=== PATIENT | female | born 1955 | race Caucasian/White ===

== ENCOUNTER 2019-03-12 12:18 | Day surgery (SDC) | payer SELFPAY, OTHER ==
[2019-03-07 17:11] LABS: Hematocrit 40.3 % (37-47); Hemoglobin 13.6 g/dL (12.0-15.0); Mean Corp Hgb Conc 33.7 g/dL (32-36); Mean Corpuscular Hgb 31.5 pg (27.0-32.0); Mean Corpuscular Volume 93.3 fL (81-99); Mean Platelet Vol. 9.6 fl (6.2-12.0); Platelet Count 314 K/mm3 (150-450); RBC Distribution Width CV 12.2 % (11.6-14.6); RBC Distribution Width SD 41.6 fl (35.1-43.9); Red Blood Count 4.32 M/mm3 (4.2-5.4); White Blood Count 8.7 K/mm3 (4.4-11.0)
[2019-03-07 17:21] LABS: Partial Thromboplast Time 26.3 Seconds (24.1-36.2); Prothrombin Time (Protime)PT. 12.7 SECONDS (11.7-14.9)
[2019-03-07 17:40] LABS: Creatinine, Serum 0.74 mg/dL (0.55-1.02); EST Glomerular Filtration Rate 83 mL/min (>60); Est Glom Filt Rate - Afr Amer 101 mL/min (>60)
--- NOTE | 2019-03-11 19:24 | HP.PCM_ITS ---
History and Physical Date of Admission: 03/12/19 Surgical History and Physical Patti Borjas, a 64 year old female 5 0 2 0 5, presents for Vaginal Hysterectomy and AP Repair on March 12, 2019 at 7:30. -- Prolapse Symptoms -- Patti is referred per Dr Garcia for prolapse. She is a 63yo postmenopausal female who has been noting a bulge in the vagina for several yrs. She relates it now protrudes out of the vaginal os anytime she is not lying down. She denies any issues with urinating or moving her bowels. Uterine prolapse which began years ago. Patti claims it started gradually and has been present constantly for years. It occurs while standing. It is located in the vagina. Patti characterizes the quality lower back ache. Severity is moderate but now worsening; It is aggravated by standing up. It is aggravated by walking. It is relieved by lying down. Associated signs and symptoms are bulge from vagina, questioning prolapsed uterus vs cystocele. MEDICATIONS HISTORY: Patient is also takin. amlodipine 5 mg tablet, 1 qd 2. hydrochlorothiazide 25 mg tablet, 1 qd 3. losartan 50 mg tablet, 1 qd ALLERGIES: Accupril, Intolerance-cough, Atenolol and Fatigue Infections - Chicken pox childhood Illnesses - no serious past illnesses, DMII and [place] Accidents - None Hospitalizations - Childbirth and see surgery Review of Systems: GENERAL - Denies fever, or chills SKIN - Denies skin changes EYES - Denies visual changes EARS - Denies difficulty hearing NOSE - Denies nasal congestion or bleeding MOUTH - Denies sore throat or difficulty swallowing NECK - Denies pain or swelling RESPIRATORY - Denies shortness of breath or wheezing CARDIOVASCULAR - Denies palpitations or chest pain GASTROINTESTINAL - Denies nausea, vomiting, diarrhea, constipation GENITOURINARY - Denies dysuria, frequency of urination, incontinence of urine MUSCULOSKELETAL - Denies joint or muscle pain NEUROLOGICAL - Denies localized numbness or weakness PSYCHIATRIC - Denies depression or anxiety ENDOCRINE - Denies heat or cold intolerance, weight loss or gain HEMATO-IMMUNOLOGIC - Denies excessive bleeding with cuts SOCIAL HISTORY: Alcohol Use - denies drinking Smoking - denies smoking Diet - low in sweets and LOW SALT Lifestyle - Exercise - active Seat Belt Use - always Employer - Housewife Illicit Drug Use - denies use of street drugs Sexual Activity - Spouse-Sig Other Name - Hernando Borjas Spouse-Sig Other Occupation - Technical Publications Writer [employer] Children Name(s) - 5 children Control - postmenopausal FAMILY HISTORY: non-contributory MENSTRUAL HISTORY: LMP Known?- Postmenopausal PAST PREGNANCIES: Total Pregnancies - 7; Full Term Pregnancies - 5; Premature - 0; Abortions, Induced - 0; Abortions, Spontaneous - 2; Ectopics - 0; Multiple Births - 0; Living Children - 5 SURGICAL HISTORY: 1. D and C, 1985 and 1986 2. Bladder tuck 1988 ; Dr Sarabia 3. Broken Wrist repair 2010 PHYSICAL EXAM BP- 134/86 Sitting, Right arm, regular cuff Weight- 136 lbs Height- 60.25 inch BMI:26.40 CONSTITUTIONAL - NAD, well nourished, and well developed SKIN - No rash, lesions, or ulcers HEENT - Normocephalic, PERRLA, EOMI NECK - No nodes, no nuchal rigidity and thyroid normal size and texture LYMPH NODES - Palpation of lymph nodes in neck and groins within normal limits LUNGS - CTA x2 without wheezes, crackles or rales CARDIAC - Regular rate and rhythm without rubs, murmurs, or gallops ABDOMEN - Without hepatosplenomegaly, distention, masses, rebound, or guarding; normal bowel sounds; no hernias EXTREMITIES - No edema or calf tenderness NEUROLOGICAL - Cranial nerves II-XII grossly intact PSYCHIATRIC - A and O to time, place, person, mood and affect External Genital Vagina - non-tender without lesions Urethra/Urethral Meatus - non-tender Bladder - non-tender Vagina - loss of rugae and cystocele 3-4 cm outside introitus; moderate rectocele Cervix - without cervical motion tenderness and has normal size and features without evident lesions and protrudes 2 cm outside introitus at rest Uterus - 5-6 cm in size, mobile and nontender Adnexa - clear without masses or tenderness ASSESSMENT/PLAN: 1. Cystocele Midline and Incomplete Uterovaginal Prolapse Discussed options for treatment including expectant management, pessary use, or proceeding with Vag Hyst and AP Repair. Wants the surgery. Discussed RBAs and all questions answered. She has been using intravaginal estrogen.
[2019-03-12] VITALS (10 sets, daily range): BP systolic 107–143; BP diastolic 46–74; PULSE 59–76; RESP 16–18; TEMP 36.2–36.7; O2SAT 92–100; BMI 24.8
--- NOTE | 2019-03-12 12:34 | EKG12_ITS ---
Test Reason : PRE OP Blood Pressure : / mmHG Vent. Rate : 082 BPM Atrial Rate : 082 BPM P-R Int : 122 ms QRS Dur : 140 ms QT Int : 436 ms P-R-T Axes : 060 092 040 degrees QTc Int : 509 ms Normal sinus rhythm Right bundle branch block Abnormal ECG Confirmed by MYKEL DENT, EMILY ([id number]), film editor supervisor LALO CASTRO ([id number]) on 03/14/2019 1:34:02 PM Referred By: Nba Pak Confirmed By:EMILY HOGUE MD
[2019-03-12] MEDS: Lactated Ringers 1,000 ML 100 ML IV ×2 (13:11→16:30)
--- NOTE | 2019-03-12 14:15 | HYST_PTH ---
PATIENT: LORENA RED LOC: [facility] [place] U#:[id number] AGE/SX: 64/F ROOM: RE03/12/[address]: Dr. Nba Pak MD : [id number] BED: DIS: 03/13/2019 SPEC #: [id number] RECD: 03/12/19 17:24 STATUS: TRACY LISETH #: [id number] DAWIT: 03/12/19 14:[address]: Nba Pak DEPT: SURGICAL PATHOLOGY RECD BY: Alexis Armando ENTERED: 03/13/19 11:11 SP TYPE: HYSTERECT OTHR DR: Dr. Judi Garcia MD Tissues: Uterus, NOS Procedures: Surgery Specimen Level V HEADER OPERATION: Vaginal hysterectomy, A & P repair PRE-OP DIAGNOSIS: Cystocele midline and incomplete uterovaginal prolapse TISSUE SUBMITTED: Uterus, vaginal mucosa MICROSCOPIC DIAGNOSIS Uterus, hysterectomy: Cervix - mild chronic inflammation, squamous metaplasia, nabothian cysts and hyperkeratosis. Endometrium - inactive endometrium with focal cystic change. Myometrium - microscopic leiomyoma and superficial adenomyosis. Vaginal mucosa, anterior and posterior repair: Minimal chronic inflammation. No evidence of dysplasia. AM:nguyen 03/14/19 MICROSCOPIC DESCRIPTION Slides are reviewed. GROSS DESCRIPTION Received in fixative is one container labeled with the patient's name and designated uterus and vaginal mucosa. The specimen consists of a uterus with attached cervix without fallopian tubes and ovaries measuring 9 x 3.5 x 3 cm and weighing 46 gm. The ectocervix is unremarkable. The cervical os is oval in contour. The endocervical canal measures 4 cm in length and is grossly unremarkable. The triangular endometrial cavity measures 3.3 x 2.5 cm. The endometrium measures up to 0.2 cm in thickness and is grossly unremarkable. The myometrium measures 1.7 cm in average thickness and is free of mass lesions. Present free in the specimen container are four fragments of pink-arceo mucosal tissue attached to hemorrhagic submucosal tissue measuring in aggregate 4 x 2 x 0.5 cm. Technical Solutions Consultant sections are submitted in six cassettes as follows: 1 - anterior cervix, 2 - posterior cervix, 3 & 4 - anterior uterine wall, 5 & 6 - posterior uterine wall, 6 - vaginal mucosa. / AM:nguyen 03/13/19 TC:5 CPT: 28413
--- NOTE | 2019-03-12 14:50 | OP.PCM_ITS ---
Report of Operation Date of Procedure: 03/12/19 Pre-Operative Diagnosis: Incomplete Uterovaginal Prolapse, Cystocele, Rectocele Post-Operative Diagnosis: Incomplete Uterovaginal Prolapse, Cystocele, Rectocele Surgery/Procedure Performed:: Vaginal Hysterectomy and Anterior Posterior Repair Description of Surgical Findings:: 8 cm uterus with irritated cervix that protrudes 2-3 cm outside of the introitus. Cystocele which protrudes 3 cm outside the introitus and rectocele which protrudes to within 2 to 3 cm of the introitus. Evidence of prior anterior repair. solar energy consultant and designer: Adan Soler Type of Anesthesia:: General - Endotracheal Anesthesiologist: Giacomo Ferguson Specimen's removed: Uterus and vaginal mucosa Drains: Dailey to straight drain Estimated Blood Loss (mL): 100 cc Fluids Replaced: Crystalloid Description of Procedure: Surgeon: Nba Pak MD, FACOG Indications: This is a 64-year-old who is been having problems with vaginal pressure and uterovaginal prolapse. Conservative measures have not been helpful. Given this the patient desires that we proceed the above procedure. She has been counseled regarding the risk and indications of this procedure including the possibility of bleeding, infection, and injury to surrounding structures such as bowel bladder. All questions were answered. Procedure: Patient was taken to the operating room where after induction of general anesthesia she was placed in the dorsal lithotomy position and prepped and draped in the usual sterile fashion. A Dailey catheter was placed. Anterior cervix was grasped with a tenaculum and anterior cervix circumscribed with cautery on a setting of 35 W coagulation. Anterior vaginal mucosa was undermined and anterior peritoneum was entered with some difficulty after 3 or 4 bites along the pedicles. The posterior aspect of the cervix was circumscribed with a knife and posterior peritoneum easily entered. Progressive bites were taken on either side of the uterine cervix and each pedicle ligated with 0 Vicryl suture. Superior pedicles were ligated ?2 with 0 Vicryl suture and sidewall pedicles were examined and oversewn where necessary with [id number] 0 Vicryl suture to achieve hemostasis. Posterior vaginal cuff was oversewn with running locked 0 Vicryl suture. Hemostasis was noted and peritoneum was closed in a pursestring fashion incorporating superior pedicles into the stitch. Hemostasis was noted. Atten tion was turned toward the anterior repair portion of the procedure. Anterior vaginal mucosa was undermined and divided and then imbricated toward the midline with interrupted 0 Vicryl sutures. Vaginal mucosa was trimmed and then closed with interrupted 2-0 chromic suture. Vaginal cuff was then closed front to back with interrupted [id number] 0 Vicryl suture. Hemostasis was noted. Attention was turned toward the posterior repair portion of the procedure. Remnants of the hymenal ring were grasped with Allises and a V-shaped incision was made in the perineum. Rectovaginal mucosa was then undermined a short distance and then divided and then imbricated toward the midline with interrupted 0 Vicryl suture. Vaginal mucosa was then closed with running locked 2-0 chromic suture. Remnants of the bulbocavernosus muscles were identified and brought toward the midline with a single [id number] 0 Vicryl suture and perineum was closed in the usual fashion with running and subcuticular, and [id number] 2-0 chromic suture. Hemostasis was noted. Dailey catheter was again opened and clear yellow urine was noted. Vagina was packed with iodoform tape. Patient tolerated the procedure well was taken to recovery room in satisfactory condition; sponge instrument and needle counts were all reportedly correct. Estimated blood loss for the case was 100 cc. Cefotan 2 g IV was given prior to beginning the operative procedure. There were no apparent complications of the surgery. Specimen to pathology was uterus and vaginal mucosa. Grafts/Implants Used: None - Complications None - Admit VTE Documentation VTE Present on Admission: Yes VTE Mechan Device Prophylaxis: SCD's VTE Pharm Prophylaxis ordered?: Yes
--- NOTE | 2019-03-12 16:45 | PCM.DC.VHY ---
Discharge Diet: No Restrictions Discharge Activity: Return to Normal Activity, May Not Drive - while taking narcotic pain medications., May Shower, May Take a Tub Bath May resume sexual activity in: 6-8 weeks Call your doctor if your incision/area has: Continuous Slow Oozing, Sudden Increased Bleeding, Increased Pain/ Swelling, Increased Redness, Foul Smelling Discharge Call your doctor if you observe: Fever of 101 or Higher, Inability to urinate, Inability to have a bowel movement, Using more than one pad per hour Allergies/Adverse Reactions: Allergies No Known Allergies Allergy (Verified 03/12/19 12:38) Medications to take at Discharge Amlodipine [Norvasc] 5 mg PO DAILY 03/05/19 Hydrochlorothiazide [Hctz] 25 mg PO DAILY 03/05/19 Losartan Potassium [Cozaar] 50 mg PO DAILY 03/05/19 Docusate Sodium [Colace] 100 mg PO BID PRN PRN #60 cap 03/12/19 Oxycodone [Oxyir] 5 mg PO Q6H PRN PRN 7 Days #14 tab 03/12/19 The following prescriptions were given: Docusate Sodium [Colace] 100 mg PO BID PRN PRN #60 cap PRN Reason: Constipation Transmission Status: Received by [facility] Oxycodone [Oxyir] 5 mg PO Q6H PRN PRN 7 Days #14 tab PRN Reason: Pain Score 6-10/10 Transmission Status: Received by [facility] Primary Care Physician: Judi Garcia MD [Primary Care Provider] - Test Results: Test results from this visit will be discussed in further detail at your follow-up appointment, if applicable. Please Follow Up With: Nba Pak MD When: 2 to 3 weeks
[2019-03-12] MEDS: Dextrose 5%-Lactated Ringers 1,000 ML 150 ML IV (18:31)
[2019-03-12] MEDS: HYDROmorphone 1 MG/ML Syringe 0.5 MG IV (18:32)
[2019-03-12] MEDS: Enoxaparin 30 MG/0.3 ML Syringe SC (19:58)
[2019-03-12] MEDS: Ketorolac 15 MG/ML Vial IV (22:08)
[2019-03-13] MEDS: Dextrose 5%-Lactated Ringers 1,000 ML 150 ML IV (01:20)
[2019-03-13] MEDS: oxyCODONE 5 MG Tablet PO (01:22)
[2019-03-13] MEDS: Ketorolac 15 MG/ML Vial IV ×2 (04:05→11:39)
[2019-03-13 06:00] LABS: Hematocrit 36.1 % (37-47); Hemoglobin 12.3 g/dL (12.0-15.0); Mean Corp Hgb Conc 34.1 g/dL (32-36); Mean Corpuscular Hgb 31.3 pg (27.0-32.0); Mean Corpuscular Volume 91.9 fL (81-99); Mean Platelet Vol. 9.6 fl (6.2-12.0); Platelet Count 286 K/mm3 (150-450); RBC Distribution Width CV 11.8 % (11.6-14.6); Red Blood Count 3.93 M/mm3 (4.2-5.4); White Blood Count 11.1 K/mm3 (4.4-11.0)
[2019-03-13 06:22] LABS: Creatinine, Serum 0.87 mg/dL (0.55-1.02); EST Glomerular Filtration Rate 69 mL/min (>60); Est Glom Filt Rate - Afr Amer 84 mL/min (>60); Estimated Creatinine Clearance 50.99 ml/min
--- NOTE | 2019-03-13 08:29 | PN.OBGYN_ITS ---
Subjective: Patient without complaints. Tolerating diet well. Positive flatus. Voiding on own after Dailey catheter discontinued. Minimal vaginal bleeding. - Physical Exam Vitals/I&O's: Vital Signs Temp Pulse Resp BP Pulse Ox 98.1 F 75 16 142/74 H 96 03/12/19 22:14 03/12/19 22:14 03/12/19 22:14 03/12/19 22:14 03/12/19 22:14 Oxygen Delivery Method Room Air Weight: 135 lb 12.876 oz Body Mass Index (BMI) 24.8 Intake and Output for Last 24 Hours 03/11/19 03/12/19 03/13/19 23:59 23:59 23:59 Intake Total 1355 / 1355 1989 Output Total 1225 / 1225 1025 / 1025 Balance 130 / 130 965 / 965 Comment: Vaginal pack removed with minimal bleeding noted. Hemoglobin/creat ok. Laboratory Results 03/13/19 05:20: WBC 11.1 H, RBC 3.93 L, Hgb 12.3, Hct 36.1 L, MCV 91.9, MCH 31.3, MCHC 34.1, RDW Std Deviation 40.0, RDW Coeff of Gustavo 11.8, Plt Count 286, MPV 9.6 03/13/19 05:20: Creatinine 0.87, Estim Creat Clear Calc 50.99, Est GFR (MDRD) Af Amer 84, Est GFR (MDRD) Non-Af 69 Current Medications Acetaminophen (Tylenol) 1,000 mg PO Q8H PRN PRN PRN Reason: Pain Score 1-3/10 or Fever Amlodipine Besylate (Norvasc) 5 mg PO DAILY [facility] Docusate Sodium (Colace) 100 mg PO BID PRN PRN PRN Reason: CONSTIPATION Hydrochlorothiazide (Hctz) 25 mg PO DAILY [facility] Hydromorphone HCl (Dilaudid Inj) 0.5 mg IV Q3H PRN PRN PRN Reason: Pain Score 4-10/10 Last Admin: 03/12/19 18:32 Dose: 0.5 mg Documented by: Ketorolac Tromethamine (Toradol) 15 mg IV Q6H SADIA Stop: 03/17/19 22:01 Last Admin: 03/13/19 04:05 Dose: 15 mg Documented by: Losartan Potassium (Cozaar) 50 mg PO DAILY [facility] Ondansetron HCl (Zofran) 4 mg IV Q4H PRN PRN PRN Reason: NAUSEA Oxycodone HCl (Oxyir) 5 mg PO Q4H PRN PRN PRN Reason: Pain Score 4-10/10 Last Admin: 03/13/19 01:22 Dose: 5 mg Documented by: Simethicone (Mylicon) 80 mg PO [facility] Last Admin: 03/12/19 22:08 Dose: 80 mg Documented by: Sodium Chloride () 10 - 40 ml IV UD PRN PRN Reason: SALINE FLUSH Medical Necessity - Tobacco Use Smoking Status: Never smoker Assessment/Plan Doing well postoperative day #1 status post vaginal hysterectomy and anterior posterior repair. Will release to home with routine instructions.
[2019-03-13 08:55] VITALS: BP 136/66; PULSE 76; RESP 16; TEMP 36.9; O2SAT 100
[2019-03-13] MEDS: hydroCHLOROthiazide 25 MG Tablet PO (09:04)
[2019-03-13] MEDS: Losartan Potassium 50 MG Tablet PO (09:05)
[2019-03-13] MEDS: amLODIPine 5 MG Tablet PO (09:05)
[2019-03-13] MEDS: Acetaminophen 500 MG Tablet 1000 MG PO (09:09)
[2019-03-13 10:00] VITALS: O2SAT 100
[2019-03-13] MEDS: 0.9% Saline Lock 10 ML Syringe IV (11:40)
[2019-03-13 14:45] VITALS: BP 130/69; PULSE 66; RESP 16; TEMP 36.7; O2SAT 99
== END 2019-03-13 14:55 | disposition home or self-care (01) ==
LOC: SDC 12:20 → AC 12:23 → ACINP 12:37 → AC 13:14 → MS3 14:54
PROVIDERS: Referring Provider Obstetrics & Gynecology; Visit Provider Obstetrics & Gynecology
PROC: (CPT 58260; principal; 2019-03-12 13:55)
DX: N81.2 Incomplete uterovaginal prolapse (principal); N88.8 Other specified noninflammatory disorders of cervix uteri; N88.0 Leukoplakia of cervix uteri; N72 Inflammatory disease of cervix uteri; N80.0 Endometriosis of uterus; D25.9 Leiomyoma of uterus, unspecified; I45.10 Unspecified right bundle-branch block; I10 Essential (primary) hypertension; Z78.0 Asymptomatic menopausal state; Z79.899 Other long term (current) drug therapy
CPT/HCPCS: 57260; 58260; 36415; 82565; 85027; 85610; 85730; 86850; 86900; 86901; 88307; 93005; 99251; J7120; A4216; G0463; J2405

== ENCOUNTER → 2019-09-04 13:13 | Outpatient (CLI) | payer OTHER, SELFPAY ==
[2019-03-12 18:06] VITALS: BMI 24.8
== END ==
PROVIDERS: Referring Provider Family Medicine; Visit Provider Family Medicine
DX: Z11.59 Encounter for screening for other viral diseases (principal)
CPT/HCPCS: 87635; G2023; U0003